=== PATIENT | female | born 1965 | race Caucasian/White ===

== ENCOUNTER 2021-11-01 06:26 | Day surgery (SDC) | payer OTHER ==
[2021-10-29 11:46] LABS: COVID AG,FIA SOURCE NASAL SWAB
[~2021-11-01] VITALS: Ht 154.9 cm; Wt 87.2 kg
[~2021-11-01 06:26] MED LIST: FURO20 PO; SACU1TAB PO
[2021-11-01] MEDS ORDERED: SODIUM CHLORIDE 0.9% 1,000 ML IV ONE (06:30)
[2021-11-01] MEDS ORDERED: SODIUM CHLORIDE 0.9% 1,000 ML ONE (06:35)
[2021-11-01] MEDS ORDERED: FentaNYL CITRATE PF 100 MCG/2 ML VIAL ONE (08:23)
[2021-11-01] MEDS ORDERED: MIDAZOLAM HCL 5 MG/ML VIAL ONE (08:23)
[2021-11-01] MEDS ORDERED: MethylPREDNISolone SOD SUCC 125 MG/2 ML VIAL IVP ONE (09:30)
[2021-11-01] MEDS ORDERED: BENZOCAINE 20% 50 MCG/SPRAY 57 GM ONE (17:54)
[2021-11-01] MEDS ORDERED: ALBUTEROL SULFATE 2.5 MG/0.5 ML NEB SOLUTION NEB ONE (17:54)
[2021-11-01] MEDS ORDERED: LIDOCAINE 4% 50 ML SOLUTION ONE (17:54)
[2021-11-01] MEDS ORDERED: LIDOCAINE 2% 11 ML JELLY ONE (17:54)
[2021-11-01] MEDS ORDERED: OXYGEN THERAPY IH SCH (20:00)
== END 2021-11-01 11:45 | disposition home or self-care (01) ==
LOC: SURGERY 06:26
PROVIDERS: ATTEND Internal Medicine Critical Care Medicine
DX: J38.4 Edema of larynx (principal); B37.0 Candidal stomatitis; I25.2 Old myocardial infarction; Z98.890 Other specified postprocedural states; Z79.899 Other long term (current) drug therapy; Z90.49 Acquired absence of other specified parts of digestive tract; Z95.0 Presence of cardiac pacemaker
CPT/HCPCS: 87426; 31623; 88112; 87206; 87101; 87220; 87070; 87015; 88305; 88312; 31624; 71045; 93005; C9803; J3010; J2250; Q9967; J7030; J7613; Z7610